=== PATIENT | female | born 1955 | race Caucasian/White ===

== ENCOUNTER 2018-12-16 12:31 | Outpatient (CLI) | payer MEDICARE, OTHER ==
[~2018-12-16] VITALS: Ht 160 cm; Wt 76.2 kg
[2018-12-16 13:00] LABS: ABG BASE EXCESS -4.2 mmol/L (-2.0-3.0); ABG OXYGEN SATURATION 96.5 % (95-98); ABG PH (T) 7.419 (7.350-7.450); ABG PO2 (T) 86.7 mmHg (83-108); ALLEN'S TEST Positive; FCOHb 0.7 % (0.5-1.5); FO2Hb 95.8 % (94-100); TOTAL HEMOGLOBIN 14.2 G/dl (12.0-16.0)
[2018-12-16] MEDS ORDERED: albuterol 2.5 MG/3 ML nebule NEB PRN (13:30)
== END 2018-12-16 23:59 | disposition home or self-care (01) ==
LOC: RT 12:31
PROVIDERS: ATTEND Internal Medicine Cardiovascular Disease
DX: J98.4 Other disorders of lung (principal); R06.02 Shortness of breath; R94.2 Abnormal results of pulmonary function studies; Z79.899 Other long term (current) drug therapy
CPT/HCPCS: 36600; 82803; 85018; 94060; 94727; 94729; 94760

== ENCOUNTER 2018-12-16 14:16 | Emergency (ER) | payer MEDICARE, OTHER ==
[~2018-12-16] VITALS: Ht 160 cm; Wt 76.4 kg
[2018-12-16 14:58] LABS: BASOPHILS % (AUTO) 0.5 % (0-1); EOSINOPHILS # (AUTO) 0.2 X10'3 (0-0.9); EOSINOPHILS % (AUTO) 1.5 % (0-6); HEMATOCRIT 41.5 % (35.0-45.0); HEMOGLOBIN 13.9 g/dl (12.0-16.0); LYMPHOCYTES % (AUTO) 29.8 % (21-51); MEAN CORPUSCULAR HEMOGLOBIN 31.6 PG (27.0-31.0); MEAN CORPUSCULAR HGB CONC 33.5 g/dL (33.0-36.5); MEAN CORPUSCULAR VOLUME 94.3 FL (78-98); MEAN PLATELET VOLUME 7.3 FL (7.4-10.4); MONOCYTES # (AUTO) 0.8 X10'3 (0-0.9); MONOCYTES % (AUTO) 7.5 % (2-12); NEUTROPHILS # (AUTO) 6.2 X10'3 (1.8-7.7); NEUTROPHILS % (AUTO) 60.7 % (42-75); PLATELET COUNT 357 X10'3 (140-440); RED CELL DISTRIBUTION WIDTH 15.3 % (11.5-14.5); WHITE BLOOD COUNT 10.1 X10'3 (4.5-11.0)
[2018-12-16 15:18] LABS: PARTIAL THROMBOPLASTIN TIME 26 SECONDS (22-32)
[2018-12-16 15:21] LABS: ALANINE AMINOTRANSFERASE 27 U/L (12-78); ALBUMIN 4.2 G/DL (3.4-5.0); ALBUMIN/GLOBULIN RATIO 1.2 (1.1-1.5); ALKALINE PHOSPHATASE 132 IU/L (46-116); ANION GAP 14 (8-16); ASPARTATE AMINO TRANSFERASE 16 U/L (10-37); BILIRUBIN,TOTAL 0.5 MG/DL (0.1-1.0); BLOOD UREA NITROGEN 25 MG/DL (7-18); BUN/CREATININE RATIO 16.4 (6.6-38.0); CALCIUM 9.6 MG/DL (8.5-10.1); CHLORIDE 102 MMOL/L (99-107); CREATININE 1.52 MG/DL (0.40-0.90); GLUCOSE 116 MG/DL (70-104); POTASSIUM 3.5 MMOL/L (3.5-5.1); SODIUM 137 MMOL/L (135-145); TOTAL PROTEIN 7.8 G/DL (6.4-8.2); eGFR 35 ML/MIN
[2018-12-16] MEDS ORDERED: normal saline 1000ML IV soln IVB ONE (15:40)
[2018-12-16 17:22] VITALS: BP 111/63
== END 2018-12-16 17:25 | disposition home or self-care (01) ==
LOC: ER 14:16
DX: R07.89 Other chest pain (principal)
CPT/HCPCS: 36415; 71045; 80053; 84484; 85025; 85610; 85730; 93005; 99284; J7030